=== PATIENT | female | born 1960 | race Hispanic/Latino ===

== ENCOUNTER 2017-01-30 16:29 | Emergency (ER) | payer MEDICAID ==
[~2017-01-30] VITALS: Ht 162.6 cm; Wt 80.0 kg
[~2017-01-30 16:29] MED LIST: ADVIL200 MG OR; CLINDAMYCIN300 M1 PO; CLONAZEP ODT1 MG PO; CLONAZEPAM1 MG PO; CLONAZEPAM2 MG PO; CYCLOBENZAPR10 MG PO; DIAZEPAM2 M1 PO; DOCQLACE100 MG PO; EC-NAPROSYN500 MG PO; ENALAPRIL MALEA10 MG PO; ENALAPRIL10 MG PO; GEODON80 MG OR; GLYBURIDE5 M1 PO; GLYCERIN RE; HYDROCO/APAP1 TA9 PO; MIRTAZAPINE45 MG OR; MOTRIN IB200 MG OR; NAPROSYN500 MG PO; OMEPRAZOLE40 MG PO; ONDANSETRON4 MG OR; ONDANSETRON4 MG PO; PERCOCET 5/325M1 TAB OR; PHENERGAN25 MG/TAB PO; PRAVASTATIN10 MG PO; PREVACID30 M2 PO; PRILOSEC20 MG OR; PRILOSEC20 MG PO; PROMETHAZINE12.5 MG OR; PROMETHAZINE12.5 MG PO; PROMETHAZINE25 MG OR; SEROQUEL100 MG PO; SERTRALINE50 MG PO; TRAMADOL HCL50 MG OR; TRAMADOL HCL50 MG PO; ULTRAM50 M1 PO; ULTRAM50 MG OR; ULTRAM50 MG PO; VALIUM2 MG PO; VENTOLIN HF1 IN; XANAX0.25 MG OR; ZITHROMAX500 MG OR; ZOCOR20 MG PO; ZOFRAN ODT4 MG PO; ZOFRAN4 M1 OR; ZOFRAN4 MG/TAB PO; ZOLOFT50 MG OR; ZOLPIDEM10 MG PO; ZOLPIDEM5 M1 PO
[2017-01-30] MEDS ORDERED: VISTARIL 50MG C50 MG PO (17:02)
[2017-01-30] MEDS ORDERED: FENOFIBRATE48 MG PO (17:03)
[2017-01-30] MEDS ORDERED: PREMARIN0.3 MG PO (17:04)
[2017-01-30] MEDS ORDERED: FERR SULFATE325 MG PO (17:05)
[2017-01-30 17:25] VITALS: BP 122/70
== END 2017-01-30 17:25 | disposition home or self-care (01) | DRG 563 ==
LOC: ED 16:29
DX: S46.911A Strain of unspecified muscle, fascia and tendon at shoulder and upper arm level, right arm, initial encounter (principal); M25.511 Pain in right shoulder; M25.521 Pain in right elbow; Y35.813A Legal intervention involving manhandling, suspect injured, initial encounter; Y92.9 Unspecified place or not applicable

== ENCOUNTER 2017-02-19 21:58 | Emergency (ER) | payer MEDICAID ==
[~2017-02-19] VITALS: Ht 162.6 cm; Wt 80.9 kg
[~2017-02-19 21:58] MED LIST changes: +FENOFIBRATE48 MG PO; +FERR SULFATE325 MG PO; +PREMARIN0.3 MG PO; +VISTARIL 50MG C50 MG PO
[2017-02-19] MEDS ORDERED: LASIX40 MG PO (22:11)
[2017-02-19] MEDS ORDERED: BENADRYL 50MG C50 MG PO (22:50)
[2017-02-19] MEDS ORDERED: MEDDOSEPAK PO (22:50)
[2017-02-19] MEDS ORDERED: PEPCID20 MG PO (22:50)
[2017-02-19 23:10] VITALS: BP 168/72
== END 2017-02-19 23:10 | disposition home or self-care (01) | DRG 916 ==
LOC: ED 21:58
DX: T78.49XA Other allergy, initial encounter (principal); K76.0 Fatty (change of) liver, not elsewhere classified; I10 Essential (primary) hypertension; F41.0 Panic disorder [episodic paroxysmal anxiety]; E11.9 Type 2 diabetes mellitus without complications; K29.50 Unspecified chronic gastritis without bleeding

== ENCOUNTER 2017-04-16 21:40 | Inpatient (IN) | payer MEDICAID ==
[~2017-04-16] VITALS: Ht 162.6 cm; Wt 68.0 kg
[~2017-04-16 21:40] MED LIST changes: +BENADRYL 50MG C50 MG PO; +LASIX40 MG PO; +MEDDOSEPAK PO; +PEPCID20 MG PO
--- NOTE | 2017-04-16 21:40 | NUR ---
PT TO ROOM 6 BY EMS FOR ABDOMINAL PAIN THAT STARTED 2 DAYS AGO.
[2017-04-16] MEDS ORDERED: LASIX 40 MG TAB40 MG PO (22:03)
[2017-04-16] MEDS ORDERED: CLONAZEPAM2 MG PO (22:04)
[2017-04-16] MEDS ORDERED: FENOFIBRATE48 MG PO (22:05)
[2017-04-16] MEDS ORDERED: VISTARIL 50MG C50 MG PO (22:07)
[2017-04-16] MEDS ORDERED: OMEPRAZOLE10 MG PO (22:08)
--- NOTE | 2017-04-16 22:24 | NUR ---
LAB IN TO DRAW BLOOD.
[2017-04-16 22:40] LABS: URINE BILIRUBIN - DIPSTICK NEGATIVE (NEGATIVE); URINE BLOOD DIPSTICK NEGATIVE (NEGATIVE); URINE CLARITY SLIGHT CLOUDY; URINE COLOR YELLOW; URINE GLUCOSE - DIPSTICK NEGATIVE (NEGATIVE); URINE KETONE NEGATIVE (NEGATIVE); URINE LEUK ESTERASE NEGATIVE (NEGATIVE); URINE NITRITE - DIPSTICK NEGATIVE (Negative); URINE PROTEIN - DIPSTICK NEGATIVE (NEG-TRACE)
[2017-04-16 22:41] LABS: HEMATOCRIT 39.8 % (37.0-47.0); HEMOGLOBIN 13.3 g/dl (12.0-16.0); IMMATURE GRANULOCYTES 0.2 % (0.0-1.0); MEAN CELL VOLUME 83.1 fL CALC (80.0-100.0); MEAN CORPUSCULAR HGB 27.8 pG CALC (26.0-32.0); MEAN CORPUSCULAR HGB CONC 33.4 g/L CALC (32.0-36.0); NEUT# 7.25 thou/uL (2.00-7.15); RED BLOOD COUNT 4.79 mill/uL (4.20-5.60); RED CELL DISTRI WIDTH 16.1 % (11.5-15.5)
[2017-04-16 22:57] LABS: ALBUMIN 4.8 g/dL (3.2-5.0); ALKALINE PHOSPHATASE 82 u/l (38-126); AMYLASE 161 u/l (30-110); ANION GAP 26 (6-22 (CALC)); BILIRUBIN, TOTAL 4.2 mg/dL (0.0-1.4); BUN 46 mg/dL (7-17); BUN/CREATININE RATIO 23 (12-20 (CALC)); CALCIUM 9.4 mg/dL (8.4-10.2); CARBON DIOXIDE 15 mmol/l (22-30); CHLORIDE 106 mmol/l (95-108); GFR 26 ML/MIN (>=60 (CALC)); GFR FOR AFR.AMER. 31 ML/MIN (>=60 (CALC)); GLUCOSE 180 mg/dL (65-105); LIPASE 375 u/l (23-300); POTASSIUM 3.2 mmol/l (3.5-5.1); SGOT/AST 22 u/l (14-36); SGPT/ALT 28 u/l (9-52); SODIUM 144 mmol/l (137-146); TOTAL PROTEIN 8.5 g/dL (6.3-8.2)
[2017-04-16 23:09] LABS: MYOGLOBIN 68 ng/mL (0 - 62)
--- NOTE | 2017-04-16 23:42 | NUR ---
PT BACK FROM CT-WAITING ON RESULTS. PT KEEPS REQUESTING WATER, INFORMED PT WE HAVE TO WAIT FOR RESULTS. CALL HESTER IN REACH
--- NOTE | 2017-04-17 00:29 | NUR ---
DIONY IN TO DO ABG ON PT PER DR PHOENIX.
--- NOTE | 2017-04-17 00:55 | NUR ---
PT TO BE ADMITTED, DR PHOENIX INFORMED PT ,.
--- NOTE | 2017-04-17 01:50 | NUR ---
CALLED FLOOR FOR REPORT NURSE OFF FLOOR
--- NOTE | 2017-04-17 01:56 | NUR ---
REPORT GIVEN TO ALYSSA CARBALLO.
--- NOTE | 2017-04-17 02:10 | NUR ---
RECEIVED FROM ER VIA STRETCHER ACCOMPANIED BY ER NURSE, AMBULATING TO STANDING SCALE THEN TO BED WITH UNSTEADY GAIT, ORIENTED TO BED CONTROLS AND CALL LIGHT FOR ASSISTANCE, A/O X3, RESPIRATIONS EVEN AND UNALBORED. C/O ABDOMINAL PAIN 12/06, THAT STARTED 3DAYS AGO, ABLE TO DRINK WATER AND EAT CRAKERS WITH NO PROBLEM, DENIES NAUSEA. IV FLUIDS INFUSING TO LH. TELE IN PLACE READING SR 80'S. WILL CONTINUE TO MONITOR.
--- NOTE | 2017-04-17 02:10 | NUR ---
Admission Note Report Given to: ALYSSA CARBALLO Transported by: Wheelchair X Stretcher Transported with: X Nurse Transporter X Patent IV O2 X Shipfitter Apprentice PT TRANSPORTED TO FLOOR BY JANUSZ RAYGOZA.
--- NOTE | 2017-04-17 05:00 | NUR ---
RESTING WITH EYES CLOSED, RESPIRATIONS EVEN AND UNLABORED. IV FLUIDS INFUSING TO LH WITH NO COMPLICATIONS. CALL LIGHT IN REACH.
--- NOTE | 2017-04-17 07:25 | NUR ---
BS REPORT RECEIVED FROM NIGHT NURSE, PT.SLEEPING AT THIS TIME AND DID NOT AWAKE TO US ENTERING ROOM, WILL F/UP W/ FULL ASSESSMENT AND V/S
[2017-04-17 08:02] VITALS: BP 113/66
[2017-04-17 09:44] VITALS: BP 121/72
[2017-04-17 11:52] LABS: BILIRUBIN, TOTAL 3.4 mg/dL (0.0-1.4); CALCIUM 8.7 mg/dL (8.4-10.2); CREATININE 1.3 mg/dL (0.5-1.0); POTASSIUM 3.1 mmol/l (3.5-5.1)
[2017-04-17 12:15] VITALS: BP 111/63
--- NOTE | 2017-04-17 16:11 | NUR ---
PT.UPRIGHT IN BED WATCHING TV, MEDICATIONS GIVEN AND JUICE AND WATER REPLENISHED
[2017-04-17 16:50] VITALS: BP 111/71
[2017-04-17 19:42] VITALS: BP 120/73
--- NOTE | 2017-04-17 20:30 | NUR ---
PT RESTING IN SEMI FOWLERS POSITION WITH FAMILY AT BEDSIDE;PT A&O X3;PT COMPLAINS OF MILD LEFT UPPER ABDOMINAL PAIN RATING 4/10 ON THE PAIN SCALE,WITH NO TENDERNESS UPON PALPATION;NO NAUSEA OR VOMITING NOTED;WARM PACK PROVIDED;ASSESSMENT COMPLETED;EMS #20G TO LEFT HAND INFUSING NS @ 80ML/HR WELL;TELE MONITOR IN PLACE READING SR 79;RESPIRATIONS EVEN AND UNLABORED ON RA;SKIN INTACT;PT REPORTS HAVING 1 LARGE,LOOSE,BROWN BM;ENCOURAGED PT TO INCREASE PO FLUIDS,PT VERBALIZES UNDERSTANDING;PT DENIES ANY OTHER NEEDS AT THIS TIME;PT EDUCATED TO CALL FOR ASSISTANCE IF NEEDED;SAFETY PRECAUTIONS REINFORCED;BED IN LOWEST POSITION WITH CALL LIGHT IN REACH;WILL CONTINUE TO MONITOR
--- NOTE | 2017-04-18 00:10 | NUR ---
PT APPEARS TO BE SLEEPING IN SEMI FOWLERS POSITION;IV FLUIDS INFUSING WELL TO LEFT HAND;WOKE PT TO OBTAIN VS;RESPIRATIONS EVEN AND UNLABORED ON RA;PT DENIES ANY PAIN OR NEEDS AT THIS TIME;PT EDUCATED TO CALL FOR ASSISTANCE IF NEEDED;CALL LIGHT WITHIN REACH;WILL CONTINUE TO MONITOR
[2017-04-18 00:13] VITALS: BP 106/62
[2017-04-18 05:07] VITALS: BP 103/61
--- NOTE | 2017-04-18 05:10 | NUR ---
PT APPEARS TO BE SLEEPING IN SEMI FOWLERS POSITION;WOKE PT TO OBTAIN VS;PT STATES "I HAVEN'T SLEPT ALL NIGHT AND MY ANKLES HURT";PT RATES BILAT ANKLE PAIN A 3 ON A SCALE FROM 1-10;LEGS ELEVATED ON A PILLOW;IV FLUIDS INFUSING WELL TO LEFT HAND;VS OBTAINED;TELE MONITOR IN PLACE;PT EDUCATED ON THE NEED TO VOID AND VERBALIZES UNDERSTANDING,PO FLUIDS PROVIDED;CALL LIGHT IN REACH;WILL CONTINUE TO MONITOR
[2017-04-18 08:00] VITALS: BP 143/69
[2017-04-18 09:07] LABS: HEMATOCRIT 33.7 % (37.0-47.0); HEMOGLOBIN 11.2 g/dl (12.0-16.0); IMMATURE GRANULOCYTES 0.4 % (0.0-1.0); MEAN CELL VOLUME 84.7 fL CALC (80.0-100.0); MEAN CORPUSCULAR HGB 28.1 pG CALC (26.0-32.0); MEAN CORPUSCULAR HGB CONC 33.2 g/L CALC (32.0-36.0); NEUT# 2.74 thou/uL (2.00-7.15); RED BLOOD COUNT 3.98 mill/uL (4.20-5.60); RED CELL DISTRI WIDTH 16.1 % (11.5-15.5)
[2017-04-18 09:50] LABS: ANION GAP 14 (6-22 (CALC)); BUN 26 mg/dL (7-17); BUN/CREATININE RATIO 31 (12-20 (CALC)); CALCIUM 8.9 mg/dL (8.4-10.2); CARBON DIOXIDE 21 mmol/l (22-30); CHLORIDE 112 mmol/l (95-108); CREATININE 0.8 mg/dL (0.5-1.0); GFR > 60 ML/MIN (>=60 (CALC)); GFR FOR AFR.AMER. > 60 ML/MIN (>=60 (CALC)); GLUCOSE 154 mg/dL (65-105); SODIUM 143 mmol/l (137-146)
--- NOTE | 2017-04-18 11:00 | NUR ---
DR. CHEUNG IN TO SEE PT.
[2017-04-18 11:23] VITALS: BP 147/83
--- NOTE | 2017-04-18 13:04 | NUR ---
Discharge instructions given. Patient verbalizes understanding of same. Discharged in stable condition via Wheelchair to Home with friend. All belongings sent with pt.
== END 2017-04-18 13:25 | disposition home or self-care (01) | DRG 683 ==
LOC: ED 21:40 → ED-I 04-17 00:32 → ED 04-17 01:00 → MS2 04-17 01:01
PROVIDERS: Emergency Medicine; Nurse Practitioner Family; ADMIT Internal Medicine; ATTEND Internal Medicine
DX: N17.9 Acute kidney failure, unspecified (principal); E87.2 Acidosis; E86.0 Dehydration; F32.9 Major depressive disorder, single episode, unspecified; F41.0 Panic disorder [episodic paroxysmal anxiety]; E87.6 Hypokalemia; E11.9 Type 2 diabetes mellitus without complications; T50.2X5A Adverse effect of carbonic-anhydrase inhibitors, benzothiadiazides and other diuretics, initial encounter; E80.6 Other disorders of bilirubin metabolism; Z87.891 Personal history of nicotine dependence; Z73.3 Stress, not elsewhere classified

== ENCOUNTER 2017-05-19 15:22 | Emergency (ER) | payer MEDICAID ==
[~2017-05-19] VITALS: Ht 162.6 cm; Wt 80.0 kg
[~2017-05-19 15:22] MED LIST changes: +LASIX 40 MG TAB40 MG PO; +OMEPRAZOLE10 MG PO
[2017-05-19] MEDS ORDERED: NAPROSYN500 MG PO (18:21)
[2017-05-19 18:29] VITALS: BP 143/75
== END 2017-05-19 18:40 | disposition home or self-care (01) | DRG 605 ==
LOC: ED 15:22
DX: S50.312A Abrasion of left elbow, initial encounter (principal); I10 Essential (primary) hypertension; K76.0 Fatty (change of) liver, not elsewhere classified; S00.93XA Contusion of unspecified part of head, initial encounter; S80.02XA Contusion of left knee, initial encounter; S60.222A Contusion of left hand, initial encounter; F41.9 Anxiety disorder, unspecified; E11.9 Type 2 diabetes mellitus without complications; Y04.0XXA Assault by unarmed brawl or fight, initial encounter

== ENCOUNTER 2017-05-23 23:56 | Emergency (ER) | payer MEDICAID ==
[~2017-05-23] VITALS: Ht 162.6 cm; Wt 77.3 kg
[2017-05-24] MEDS ORDERED: NAPROSYN500 MG PO (00:32)
[2017-05-24 01:57] VITALS: BP 110/60
== END 2017-05-24 02:00 | disposition home or self-care (01) | DRG 951 ==
LOC: ED 23:56
DX: Z76.0 Encounter for issue of repeat prescription (principal); S46.90 Unspecified injury of unspecified muscle, fascia and tendon at shoulder and upper arm level; Y04.2XXD Assault by strike against or bumped into by another person, subsequent encounter

== ENCOUNTER 2017-06-27 08:51 | Emergency (ER) | payer MEDICAID ==
[~2017-06-27] VITALS: Ht 162.6 cm; Wt 70.0 kg
[2017-06-27 09:05] VITALS: BP 146/83
[2017-06-27] MEDS ORDERED: SERTRALINE50 MG PO (09:31)
[2017-06-27] MEDS ORDERED: SEROQUEL100 MG PO (09:31)
[2017-06-27] MEDS ORDERED: PRILOSEC20 MG PO (09:31)
[2017-06-27] MEDS ORDERED: CLONAZEPAM2 MG PO (09:31)
== END 2017-06-27 11:01 | disposition home or self-care (01) | DRG 880 ==
LOC: ED 08:51
DX: F41.0 Panic disorder [episodic paroxysmal anxiety] (principal); K76.0 Fatty (change of) liver, not elsewhere classified; I10 Essential (primary) hypertension; F32.9 Major depressive disorder, single episode, unspecified; E11.9 Type 2 diabetes mellitus without complications; K29.50 Unspecified chronic gastritis without bleeding; G47.00 Insomnia, unspecified

== ENCOUNTER 2017-07-11 14:18 | Emergency (ER) | payer MEDICAID ==
[~2017-07-11] VITALS: Ht 162.6 cm; Wt 75.0 kg
[2017-07-11 14:56] LABS: HEMATOCRIT 23.5 % (37.0-47.0); HEMOGLOBIN 7.6 g/dl (12.0-16.0); IMMATURE GRANULOCYTES 0.5 % (0.0-1.0); MEAN CELL VOLUME 93.3 fL CALC (80.0-100.0); MEAN CORPUSCULAR HGB 30.2 pG CALC (26.0-32.0); MEAN CORPUSCULAR HGB CONC 32.3 g/L CALC (32.0-36.0); NEUT# 8.37 thou/uL (2.00-7.15); RED BLOOD COUNT 2.52 mill/uL (4.20-5.60); RED CELL DISTRI WIDTH 14.8 % (11.5-15.5)
[2017-07-11 15:16] LABS: ALBUMIN 3.7 g/dL (3.2-5.0); ALKALINE PHOSPHATASE 74 u/l (38-126); AMYLASE 66 u/l (30-110); ANION GAP 18 (6-22 (CALC)); BILIRUBIN, TOTAL 2.4 mg/dL (0.0-1.4); BUN 33 mg/dL (7-17); BUN/CREATININE RATIO 39 (12-20 (CALC)); CALCIUM 9.3 mg/dL (8.4-10.2); CARBON DIOXIDE 20 mmol/l (22-30); CHLORIDE 108 mmol/l (95-108); CREATININE 0.9 mg/dL (0.5-1.0); GFR > 60 ML/MIN (>=60 (CALC)); GFR FOR AFR.AMER. > 60 ML/MIN (>=60 (CALC)); GLUCOSE 159 mg/dL (65-105); LIPASE 82 u/l (23-300); POTASSIUM 3.8 mmol/l (3.5-5.1); SGOT/AST 15 u/l (14-36); SGPT/ALT 32 u/l (9-52); SODIUM 142 mmol/l (137-146); TOTAL PROTEIN 6.3 g/dL (6.3-8.2)
[2017-07-11 15:24] LABS: MYOGLOBIN 51 ng/mL (0 - 62)
[2017-07-11 16:41] VITALS: BP 129/60
== END 2017-07-11 17:03 | disposition short-term general hospital (02) | DRG 379 ==
LOC: ED 14:18
PROVIDERS: Emergency Medicine
DX: K92.2 Gastrointestinal hemorrhage, unspecified (principal); D64.9 Anemia, unspecified; R10.13 Epigastric pain; R11.10 Vomiting, unspecified; R19.7 Diarrhea, unspecified
CPT/HCPCS: J2060; S0164

== ENCOUNTER 2017-07-14 09:58 | Emergency (ER) | payer MEDICAID ==
[~2017-07-14] VITALS: Ht 162.6 cm; Wt 70.0 kg
[2017-07-14 11:23] LABS: HEMOGLOBIN 10.4 g/dl (12.0-16.0); IMMATURE GRANULOCYTES 0.5 % (0.0-1.0); MEAN CELL VOLUME 91.2 fL CALC (80.0-100.0); MEAN CORPUSCULAR HGB 30.6 pG CALC (26.0-32.0); MEAN CORPUSCULAR HGB CONC 33.5 g/L CALC (32.0-36.0); NEUT# 7.02 thou/uL (2.00-7.15); RED BLOOD COUNT 3.4 mill/uL (4.20-5.60); RED CELL DISTRI WIDTH 16.9 % (11.5-15.5)
[2017-07-14 11:46] LABS: ALBUMIN 3.5 g/dL (3.2-5.0); ALKALINE PHOSPHATASE 63 u/l (38-126); ANION GAP 13 (6-22 (CALC)); BILIRUBIN, TOTAL 1.8 mg/dL (0.0-1.4); BUN 9 mg/dL (7-17); BUN/CREATININE RATIO 14 (12-20 (CALC)); CALCIUM 9.1 mg/dL (8.4-10.2); CARBON DIOXIDE 24 mmol/l (22-30); CHLORIDE 110 mmol/l (95-108); CREATININE 0.7 mg/dL (0.5-1.0); GFR > 60 ML/MIN (>=60 (CALC)); GFR FOR AFR.AMER. > 60 ML/MIN (>=60 (CALC)); GLUCOSE 82 mg/dL (65-105); POTASSIUM 3.3 mmol/l (3.5-5.1); SGOT/AST 13 u/l (14-36); SGPT/ALT 26 u/l (9-52); SODIUM 144 mmol/l (137-146); TOTAL PROTEIN 5.9 g/dL (6.3-8.2)
[2017-07-14 12:24] VITALS: BP 139/65
== END 2017-07-14 13:08 | disposition home or self-care (01) | DRG 880 ==
LOC: ED 09:58
PROVIDERS: Emergency Medicine
DX: F41.9 Anxiety disorder, unspecified (principal)